=== PATIENT | female | born 1980 | race African-American/Black ===

== ENCOUNTER 2016-06-10 14:55 | Inpatient (IN) | payer OTHER ==
--- NOTE | ~2016-06-10 | DS ---
Unit #: [id number] #: [id number] Patient: MARY LOBO [id number] [facility] [address] [place] [address] [id number] I MR#: [id number] NAME: MARY LOBO ROOM: [facility] Age: 35 Sex: F Admission Date: 06/10/2016 : 1980 Discharge Date: 06/14/2016 Attending Physician: Tam Pro M.D. Primary Care Physician: Generic Doctor Not In System DISCHARGE SUMMARY REASON FOR ADMISSION Mary is a 35-year-old woman with a history of bipolar disorder, who has been using cocaine heavily and been off her bipolar medications. She had suicidal ideation and could not contract for safety. She was admitted for stabilization. HOSPITAL COURSE The patient was admitted and placed on suicide precautions. She was allowed a washout period from cocaine and transferred to a chemical dependency unit, where she had accessed well with groups and activities. Zoloft, Neurontin, and Seroquel were continued with good results. On the date of discharge, she contracted for safety and was able to follow up with the intensive outpatient program at this facility. DISCHARGE DIAGNOSES AXIS I: Bipolar, depressed, cocaine abuse. AXIS II: No diagnosis. AXIS III: None. AXIS IV: AXIS V: DISCHARGE INSTRUCTIONS Follow up with CD-IOP and primary care physician. DISCHARGE MEDICATIONS Zoloft 100 mg daily for depression, Seroquel 200 mg at bedtime for mood, and Neurontin 300 mg t.i.d. for anxiety. CONDITION AT DISCHARGE Improved. PROGNOSIS Good. DIET AND ACTIVITY Ad franky. Dictated by... Tam Pro M.D. [facility] Unit #: [id number] #: [id number] Patient: MARY LOBO TD: 07/22/2016 00:36 JOB #: [id number] DISCHARGE SUMMARY Page 1 of 1 X Tam Pro MD X DISCHARGE SUMMARY
--- NOTE | ~2016-06-10 | PN ---
Unit #: [id number] #: [id number] Patient: ANTWON LOBO [id number] [facility] [address] [place] [address] [id number] I MR#: [id number] NAME: ANTWON LOBO ROOM: 32 Age: 35 Sex: F Admission Date: 06/10/2016 : 1980 Attending Physician: Tam Pro M.D. Admitting Physician: Tam Pro M.D. Primary Care Physician: Generic Doctor Not In System [facility] PROGRESS NOTES DATE 06/13/2016 DISCUSSION The patient is abed today complaining of abdominal cramping. She is otherwise denying suicidal or homicidal ideation. She does not request a transfer to a chemical dependence floor. Dr. Pro will resume care of the patient tomorrow. I will add Bentyl 10 mg q. 6 hours p.r.n. abdominal cramping. Dictated by... Marlon Wisdom M.D. CB/berenice TD: 06/13/2016 14:37 JOB #: [id number] [facility] PROGRESS NOTES Page 1 of 1 X Marlon Wisdom MD X PROGRESS NOTE
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
--- NOTE | ~2016-06-10 | HP ---
Unit #: [id number] #: [id number] Patient: MARY LOBO [id number] [place] [address] [id number] I MR#: [id number] NAME: MARY LOBO ROOM: 32 Age: 35 Sex: F Admission Date: 06/10/2016 : 1980 Attending Physician: Tam Pro M.D. Admitting Physician: Tam Pro M.D. Primary Care Physician: Generic Doctor Not In System HISTORY AND PHYSICAL HISTORY OF PRESENT ILLNESS Mary is a 35 year old admitted to [address] [place] [address] because of her drug use. She snorts cocaine. PAST MEDICAL HISTORY Long history of illicit substance abuse to include snorting cocaine. PAST SURGICAL HISTORY 1. x1. 2. Breast biopsy, benign. 3. Tubal ligation. ALLERGIES No known drug allergies. SOCIAL HISTORY Smokes 1/2 pack per day. Drinks alcohol on occasion. Has a history of illicit substance abuse. She denies any IV drugs. FAMILY HISTORY Medically noncontributory. REVIEW OF SYSTEMS CONSTITUTIONAL: No fever or chills. HEENT: Denies any sore throat, ear pain or runny nose. CARDIOVASCULAR: Denies chest pain, irregular heart rhythm or palpitations. CHEST: Denies shortness of breath or cough. No hemoptysis. GASTROINTESTINAL: Denies nausea, vomiting, diarrhea or chronic constipation. ENDOCRINE: Denies history of increased thirst or urination. No recent significant weight loss or gain. GENITOURINARY: Denies dysuria, frequency, or hematuria. SKIN: Denies any rashes. HEMATOLOGIC: Denies history of increased bleeding or bruising. MUSCULOSKELETAL: Denies any hot, swollen joints. No generalized muscle pain. NEUROLOGIC: Denies problems with vision or speech. No frequent, severe headaches. No numbness, tingling or weakness in any extremities. Denies loss of bladder or bowel control. CURRENT MEDICATIONS 1. Seroquel 300 mg q.h.s. 2. Neurontin 300 mg b.i.d. Unit #: [id number] #: [id number] Patient: MARY LOBO 3. Milk of Magnesia p.r.n. 4. Maalox p.r.n. 5. Tylenol p.r.n. 6. Nicotine patch 14 mg daily. 7. Zoloft 100 mg daily. PHYSICAL EXAMINATION GENERAL: Alert, well-nourished, in no apparent distress. VITAL SIGNS: Blood pressure 112/74, heart rate 88, respirations 16, temperature 98.6. WEIGHT: 121. HEIGHT: 5 feet 7 inches. SKIN: Warm and dry without rash or lesion. HEENT: Normocephalic. TMs not viewed. Oral and nasal passages clear. Conjunctivae clear. PERRLA. EOMs intact. NECK: Supple without lymphadenopathy or thyromegaly. HEART: Regular rate and rhythm without murmur. LUNGS: Clear. ABDOMEN: Soft, nontender. : Not done. EXTREMITIES: No evidence of cyanosis, clubbing or edema. Moves all without focal deficit. NEUROLOGICAL: Grossly within normal limits. Cranial Nerves: II: Visual sorto are intact. III, IV AND : Extraocular movements are intact. Pupils are equal, round and reactive to light. V: Facial sensation is grossly normal. VII: Facial movements and expression are normal. VIII: Auditory acuity grossly intact. IX, X: Uvula is midline. Phonation is normal. XI: Patient shrugs shoulders and turns head normally. XII: Tongue protrudes in the midline. Sensory and Motor Function: Sensory and motor sensation is grossly normal. Motor: moves all extremities well. Coordination: Gait is normal. Deep Tendon Reflexes: Intact. IMPRESSION Psychiatric admission. RECOMMENDATIONS PSYCHIATRIC: Per psychiatrist. MEDICAL: See no contraindications to participate in facility's activities. MEDICAL PROGNOSIS Good. MEDICAL CONDITION Stable. Dictated by... Christianne Sandra P.A.-C. for Jw Mcginnis/jo TD: 06/11/2016 15:27 Unit #: [id number] #: [id number] Patient: MARY LOBO JOB #: [id number] HISTORY AND PHYSICAL Page 1 of 1 X Christianne Sandra HISTORY AND PHYSICAL
[2016-07-10] MEDS ORDERED: CODEINE30 MG (23:37)
== END 2016-06-14 14:05 | disposition home or self-care (01) | DRG 885 ==
LOC: P1S 14:55
DX: F31.30 Bipolar disorder, current episode depressed, mild or moderate severity, unspecified (principal); F14.20 Cocaine dependence, uncomplicated; R45.851 Suicidal ideations; F17.210 Nicotine dependence, cigarettes, uncomplicated; F41.9 Anxiety disorder, unspecified

== ENCOUNTER 2016-06-16 16:39 | Inpatient (IN) | payer OTHER ==
--- NOTE | ~2016-06-16 | HP ---
Unit #: [id number] #: [id number] Patient: MARY LOBO [id number] [facility] [address] [place] [address] [id number] MR#: [id number] NAME: MARY LOBO ROOM: [facility] Age: 35 Sex: F Admission Date: 06/16/2016 : 1980 Attending Physician: Tam Pro M.D. Admitting Physician: Tam Pro M.D. Primary Care Physician: Generic Doctor Not In System HISTORY AND PHYSICAL HISTORY OF PRESENT ILLNESS Mary is a 35 year old admitted to [facility] because of her continued drug use. She was just discharged from this facility for treatment of the same. The patient was seen and H and P dated 06/11/2016 was reviewed. This is current. No changes. Please see H and P dated 06/11/2016. Dictated by... Christianne Sandra P.A.-C. for Jw Mcginnis/[place] TD: 06/17/2016 23:07 JOB #: [id number] HISTORY AND PHYSICAL Page 1 of 1 X Christianne Sandra HISTORY AND PHYSICAL
--- NOTE | ~2016-06-16 | PN ---
Unit #: [id number] #: [id number] Patient: MARY LOBO [id number] [facility] [address] [place] [address] [id number] MR#: [id number] NAME: MARY LOBO ROOM: [facility] Age: 35 Sex: F Admission Date: 06/16/2016 : 1980 Attending Physician: Tam Pro M.D. Admitting Physician: Tam Pro M.D. Primary Care Physician: Generic Doctor Not In System [facility] PROGRESS NOTES DATE 06/18/2016 DISCUSSION Mary continues to be isolated from peers and reports suicidal ideation with a plan to overdose. She is depressed in mood with a congruent affect. She is alert and fully oriented. There is no evidence of psychosis today. ASSESSMENT Major depression. PLAN Continue current medications and suicide precautions. Dictated by... Jw Callahan/jo TD: 06/20/2016 22:40 JOB #: [id number] [facility] PROGRESS NOTES Page 1 of 1 X Tam Pro MD X PROGRESS NOTE
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
--- NOTE | ~2016-06-16 | PN ---
Unit #: [id number] #: [id number] Patient: MARY LOBO [id number] [facility] [address] [place] [address] [id number] I MR#: [id number] NAME: MARY LOBO ROOM: [facility] Age: 35 Sex: F Admission Date: 06/16/2016 : 1980 Attending Physician: Tam Pro M.D. Admitting Physician: Tam Pro M.D. Primary Care Physician: Generic Doctor Not In System [facility] PROGRESS NOTES DATE OF SERVICE 06/19/2016 DISCUSSION Mary appears better today although she will not contract for safety against self-harm if released today. She is tolerating medications, and no adverse side effects. She is alert and fully oriented and does not appear psychotic. ASSESSMENT Major depression. PLAN Continue current treatment plan. Dictated by... Tam Pro M.D. [facility]/bzg TD: 06/20/2016 12:58 JOB #: [id number] [facility] PROGRESS NOTES Page 1 of 1 X Tam Pro MD PROGRESS NOTE
[2016-07-10] MEDS ORDERED: CODEINE30 MG (23:37)
== END 2016-06-20 07:50 | disposition home or self-care (01) | DRG 885 ==
LOC: P1S 16:39 → P1E 06-17 16:12
DX: F31.9 Bipolar disorder, unspecified (principal); F14.20 Cocaine dependence, uncomplicated; R45.851 Suicidal ideations; F17.210 Nicotine dependence, cigarettes, uncomplicated